=== PATIENT | female | born 1995 | race Caucasian/White ===

== ENCOUNTER → 2022-05-15 | Outpatient (CLI) | payer OTHER, SELFPAY ==
[2022-05-15 12:44] LABS: Hemoglobin A1c 5.1 % (3.8-5.6)
[2022-05-17 21:49] LABS: HPV Reflexed? NOT INDICATED
[2022-05-18 13:45] LABS: Testosterone Free 2.3 pg/mL (0.0-4.2)
[2022-05-19 16:08] LABS: 17-Hydroxyprogesterone 141 ng/dL (.)
== END | disposition home or self-care (01) ==
LOC: PAVLAB 11:26
PROVIDERS: Referring Provider Obstetrics & Gynecology; Visit Provider Obstetrics & Gynecology
DX: R30.9 Painful micturition, unspecified (principal); L68.0 Hirsutism; Z12.4 Encounter for screening for malignant neoplasm of cervix
CPT/HCPCS: 36415; 82627; 83036; 83498; 84402; 87086; 87088; 88175; 82626; G0145

== ENCOUNTER → 2022-08-09 | Outpatient (CLI) | payer OTHER, SELFPAY ==
--- NOTE | 2022-08-09 11:04 | US_ITS ---
STUDY: LIMITED FEMALE PELVIC ULTRASOUND EXAMINATION OF 1157 HOURS ON 08/09/2022 REASON FOR EXAM: 26-year-old female with irregular menses. TECHNIQUE: A limited female pelvic ultrasound examination was performed per protocol via the transvaginal approach.. TECHNICAL QUALITY: Adequate. COMPARISON: None. FINDINGS: There there is a retroflexed midline uterus measuring 8.5 cm splenic by 5.5 cm AP diameter by 3.7 cm in transverse diameter. There is a hyperechoic endometrial thickness at 10 mm. There is no evidence of an acute or ectopic . There is no evidence of uterine cystic or solid mass lesions or fibroids. A nabothian cyst is present. There is no evidence of an intrauterine device. The right ovary measures 3.5 cm x 2.6 x 1.6 cm and has follicles, but no cystic or solid mass lesions. There is no evidence of torsion. The left ovary measures 3.1 cm x 2.5 cm x 2.1 cm and is without solid mass lesions or torsion. There is a cyst which is either pedunculated or exophytic from the left ovary or is separate from the left ovary measuring 3.5 cm x 3.4 cm x 3.0 cm. There is no evidence of other adnexal masses. A mild amount of free fluid with echoes is noted in the cul-de-sac. US/Transvaginal Non- IMPRESSION: 1. Normal retroverted uterus with a 10 mm thick hyperechoic endometrium. 2. No uterine cystic or solid mass lesions or fibroids. 3. Single nabothian cyst in the cervix. 4. No intrauterine or intrauterine device. 5. Normal right ovary. 6. Normal left ovary with either a pedunculated exophytic cyst 3.5 cm in diameter cyst or a separate 3.5 cm in diameter cyst adjacent to the left ovary. 7. No ovarian solid mass lesions or torsion. 8. Small amount of echogenic free fluid in the cul-de-sac. Electronically Signed: Thee Lopez MD at 17:02 EDT ,
--- NOTE | 2022-08-09 11:04 | US_ITS ---
STUDY: LIMITED FEMALE PELVIC ULTRASOUND EXAMINATION OF 1157 HOURS ON 08/09/2022 REASON FOR EXAM: 26-year-old female with irregular menses. TECHNIQUE: A limited female pelvic ultrasound examination was performed per protocol via the transvaginal approach.. TECHNICAL QUALITY: Adequate. COMPARISON: None. FINDINGS: There there is a retroflexed midline uterus measuring 8.5 cm splenic by 5.5 cm AP diameter by 3.7 cm in transverse diameter. There is a hyperechoic endometrial thickness at 10 mm. There is no evidence of an acute or ectopic . There is no evidence of uterine cystic or solid mass lesions or fibroids. A nabothian cyst is present. There is no evidence of an intrauterine device. The right ovary measures 3.5 cm x 2.6 x 1.6 cm and has follicles, but no cystic or solid mass lesions. There is no evidence of torsion. The left ovary measures 3.1 cm x 2.5 cm x 2.1 cm and is without solid mass lesions or torsion. There is a cyst which is either pedunculated or exophytic from the left ovary or is separate from the left ovary measuring 3.5 cm x 3.4 cm x 3.0 cm. There is no evidence of other adnexal masses. A mild amount of free fluid with echoes is noted in the cul-de-sac. US/Pelvic (Non ) IMPRESSION: 1. Normal retroverted uterus with a 10 mm thick hyperechoic endometrium. 2. No uterine cystic or solid mass lesions or fibroids. 3. Single nabothian cyst in the cervix. 4. No intrauterine or intrauterine device. 5. Normal right ovary. 6. Normal left ovary with either a pedunculated exophytic cyst 3.5 cm in diameter cyst or a separate 3.5 cm in diameter cyst adjacent to the left ovary. 7. No ovarian solid mass lesions or torsion. 8. Small amount of echogenic free fluid in the cul-de-sac. Electronically Signed: Thee Lopez MD at 17:02 EDT ,
== END | disposition home or self-care (01) ==
LOC: US 11:03
PROVIDERS: Referring Provider Obstetrics & Gynecology; Visit Provider Obstetrics & Gynecology
DX: L68.0 Hirsutism (principal)
CPT/HCPCS: 76830; 76856

== ENCOUNTER → 2022-10-08 | Outpatient (CLI) | payer OTHER, SELFPAY | END | disposition home or self-care (01) | LOC: LABSPEC 10:51 | PROVIDERS: Visit Provider Nurse Practitioner Women's Health | DX: N90.89 Other specified noninflammatory disorders of vulva and perineum (principal) | CPT/HCPCS: 86695; 86696; 87255 ==

== ENCOUNTER → 2023-06-05 | Outpatient (CLI) | payer OTHER, SELFPAY ==
[2023-06-05 15:25] LABS: Absolute Lymphocyte Count 1.75 X10^3/uL (0.83-4.51); Absolute Neutrophil Count 5.3 X10^3/uL (2.0-7.7); Basophil# 0.03 X10^3/uL; Basophil% 0.4 % (0-1); Eosinophil# 0.04 X10^3/uL; Eosinophils% 0.5 % (0-5); Hematocrit 39.5 % (37-47); Hemoglobin 12.8 g/dL (12.0-15.0); Lymphocyte # 1.75 X10^3/ul (0.83-4.51); Mean Corp Hgb Conc 32.4 g/dL (32-36); Mean Corpuscular Hgb 29.5 pg (27.0-32.0); Mean Platelet Vol. 10.8 fl (6.2-12.0); Monocyte# 0.44 X10^3/uL; Monocyte% 5.8 % (0-10); NRBC Flagged by Analyzer 0 % (0-5); Neutrophil # 5.32 X10^3/uL (2.7-7.7); Platelet Count 355 K/mm3 (150-450); Red Blood Count 4.34 M/mm3 (4.2-5.4); White Blood Count 7.6 K/mm3 (4.4-11.0)
[2023-06-05 16:26] LABS: ALB/GLOB Ratio 1.1 RATIO (0.9-2.4); AST(SGOT) 21 U/L (15-37); Alanine Aminotransfer ALT/SGPT 22 U/L (13-56); Alkaline Phosphatase 68 U/L (45-117); Anion Gap 4 (5-15); BUN 10 mg/dL (7-18); BUN/Creat Ratio 12.2 RATIO (10-20); Calcium,Total 9.2 mg/dL (8.5-10.1); Chloride 109 mmol/L (98-107); Cholesterol 155 mg/dL (200); Creatinine, Serum 0.82 mg/dL (0.55-1.02); EST Glomerular Filtration Rate 87 mL/min (>60); Est Glom Filt Rate - Afr Amer 105 mL/min (>60); Globulin 3.8 g/dL (2.2-4.2); Glucose 89 mg/dL (74-106); High Density Lipoprotein 63 mg/dL; Potassium 3.8 mmol/L (3.5-5.1); Protein, Total 7.8 g/dL (6.4-8.2); Sodium Level 140 mmol/L (136-145); Triglycerides 38 mg/dL; Very Low Density Lipoprotein 8 mg/dL (5-40)
== END | disposition home or self-care (01) ==
PROVIDERS: PCP Internal Medicine; Visit Provider Internal Medicine
DX: Z00.00 Encounter for general adult medical examination without abnormal findings (principal)
CPT/HCPCS: 36415; 80053; 80061; 85025